=== PATIENT | female | born 1960 | race Caucasian/White ===

== ENCOUNTER → 2024-09-30 10:14 | Outpatient (REF) | payer OTHER, SELFPAY | LOC: HWRCS 10:14 | PROVIDERS: ATTENDING PHYSICIAN Internal Medicine Cardiovascular Disease; FAMILY PHYSICIAN Internal Medicine | DX: I10 Essential (primary) hypertension (principal); I36.1 Nonrheumatic tricuspid (valve) insufficiency; I35.8 Other nonrheumatic aortic valve disorders | CPT/HCPCS: 93306 ==